=== PATIENT | male | born 1975 | race Caucasian/White ===

== ENCOUNTER 2017-02-20 21:04 | Emergency (ER) | payer OTHER ==
[~2017-02-20] VITALS: Ht 177.8 cm; Wt 99.8 kg
[~2017-02-20 21:04] MED LIST: AMOXICILLIN,AM875 MG PO; AMOXICILLIN500 MG PO; ANAPROX DS550 MG PO; ANTIVERT/2525 MG PO; ASPIRIN81 M1 PO; BACTRIM DS 8001 TA1 PO; CLARITIN-D 10 M1 T21 PO; CYCLOBENZAPRINE10 MG PO; FLONASE ALLERG9.9 ML NAS; HYDROCODONE BIT1 T11 PO; MOTRIN800 MG PO; Motrin,Rufen800 MG PO; NAPROSYN500 MG PO; NKHM; NKHM PO; OMEPRAZOLE40 MG PO; PHENERGAN25 M1 PO; PREDNISONE10 MG PO; ROBITUSSIN AC 110 ML PO; SIMVASTATIN20 MG PO; SKELAXIN800 M1 PO; VICO10300 PO; VICODIN ES 7501 TAB PO; WELLBUTRIN SR150 MG PO; ZANTAC 150150 MG PO; ZANTAC150 MG PO; ZITHROMAX Z PA250 MG PO; ZITHROMAX250 MG PO; ZOFRAN 4 MG ED2 TAB PO; ZOFRAN ODT4 MG SL
[2017-02-20] MEDS ORDERED: PREDNISONE50 MG PO (22:27)
== END 2017-02-20 22:32 | disposition home or self-care (01) ==
LOC: ED 21:04
DX: J40 Bronchitis, not specified as acute or chronic (principal); F17.200 Nicotine dependence, unspecified, uncomplicated

== ENCOUNTER 2017-03-16 13:03 | Emergency (ER) | payer OTHER ==
[~2017-03-16 13:03] MED LIST changes: +PREDNISONE50 MG PO
[2017-03-16] MEDS ORDERED: PREDNISONE10 MG PO (13:21)
[2017-03-16] MEDS ORDERED: ROBITUSSIN DM 105 ML PO (13:21)
[2017-03-16] MEDS ORDERED: CLARITIN10 MG PO (13:21)
[2017-03-16] MEDS ORDERED: FLONASE ALLERG9.9 ML NAS (13:21)
== END 2017-03-16 14:32 | disposition home or self-care (01) ==
LOC: ED 13:03
DX: B34.9 Viral infection, unspecified (principal); R03.0 Elevated blood-pressure reading, without diagnosis of hypertension; F17.200 Nicotine dependence, unspecified, uncomplicated; Z79.899 Other long term (current) drug therapy; Z79.82 Long term (current) use of aspirin

== ENCOUNTER → 2017-09-03 | Outpatient (CLI) | payer OTHER ==
[~2017-09-03] MED LIST changes: +CLARITIN10 MG PO; +ROBITUSSIN DM 105 ML PO
== END | disposition home or self-care (01) ==
LOC: CARD 09:46
DX: I10 Essential (primary) hypertension (principal); R94.31 Abnormal electrocardiogram [ECG] [EKG]

== ENCOUNTER → 2017-11-27 | Outpatient (CLI) | payer OTHER | END | disposition home or self-care (01) | LOC: CARD 08:24 | DX: R06.02 Shortness of breath (principal); I10 Essential (primary) hypertension; K21.9 Gastro-esophageal reflux disease without esophagitis; R94.31 Abnormal electrocardiogram [ECG] [EKG] ==

== ENCOUNTER 2018-09-10 11:10 | Emergency (ER) | payer OTHER ==
[~2018-09-10] VITALS: Ht 177.8 cm; Wt 124.7 kg
[~2018-09-10 11:10] MED LIST changes: +ALLERGY RELIEF10 M2 PO; +ASPIRIN ADULT L81 M2 PO; +DELTASONE20 M1 PO; +LISINOPRIL20 MG PO; +ZYRTEC10 MG PO
[2018-09-10] MEDS ORDERED: SEPTDS PO (12:57)
[2018-09-10] MEDS ORDERED: FLONASE ALLERG9.9 ML NAS (12:57)
[2018-09-10] MEDS ORDERED: TESSALON PERLE100 M1 PO (12:57)
== END 2018-09-10 13:20 | disposition home or self-care (01) ==
LOC: ED 11:10
DX: J32.9 Chronic sinusitis, unspecified (principal); F17.200 Nicotine dependence, unspecified, uncomplicated; Z79.899 Other long term (current) drug therapy; Z79.82 Long term (current) use of aspirin

== ENCOUNTER → 2022-07-17 | Outpatient (CLI) | payer OTHER ==
[~2022-07-17] MED LIST changes: +SEPTDS PO; +TESSALON PERLE100 M1 PO
[2022-07-17 10:27] LABS: ALKALINE PHOSPHATASE 84 U/L (46-116); BUN 10 mg/dl (9-23); CHLORIDE 107 mmol/L (98-107); CHOLESTEROL 161 mg/dL (<200); LDL CHOLESTEROL 79 mg/dL (9-159); SGPT/ALT 28 U/L (10-49); TOTAL PROTEIN 7.3 gm/dL (6.0-8.0); TRIGLYCERIDES 264 mg/dl (<150)
== END | disposition home or self-care (01) ==
LOC: LAB 09:57
PROVIDERS: ATTEND Nurse Practitioner Family
DX: I10 Essential (primary) hypertension (principal); E78.2 Mixed hyperlipidemia

== ENCOUNTER 2024-03-17 16:29 | Emergency (ER) | payer OTHER ==
[~2024-03-17] VITALS: Ht 172.7 cm; Wt 81.6 kg
[2024-03-17] MEDS ORDERED: Amoxicillin/Clavulanate Pota 875 MG TAB PO ONE (16:50)
[2024-03-17] MEDS ORDERED: AMOX-CLAV 875-1 EACH PO (17:50)
== END 2024-03-17 17:32 | disposition home or self-care (01) ==
LOC: ED 16:29
DX: H66.91 Otitis media, unspecified, right ear (principal); R00.0 Tachycardia, unspecified; K21.9 Gastro-esophageal reflux disease without esophagitis; Z98.890 Other specified postprocedural states

== ENCOUNTER 2024-12-11 16:19 | Inpatient (IN) | payer OTHER ==
[~2024-12-11] VITALS: Ht 177.8 cm; Wt 132.2 kg
[~2024-12-11 16:19] MED LIST changes: +AMOX-CLAV 875-1 EACH PO
[2024-12-11 16:27] VITALS: BP 143/86
[2024-12-11 17:19] LABS: BASO # 0.0 10*3/uL (0.0-0.1); BASO % 0.4 % (0.0-1.0); EOS # 0.1 10*3/uL (0.0-0.4); EOS % 1.5 % (1.0-4.0); MEAN CELL VOLUME 82.5 fl (80.0-94.0); MEAN CORPUSCULAR HGB 29.4 pg (27.0-31.0); MEAN PLATELET VOLUME 9.5 fl (9.6-12.3); MONO # 0.7 10*3/uL (0.1-1.0); MONO % 10.3 % (3.0-9.0); NEUT # 5.5 10*3/uL (2.3-7.9); NEUT % 75.6 % (47.0-73.0); NUCLEATED RED BLOOD CELL 0.0 % (0.0-0.0); NUCLEATED RED BLOOD CELL 0.0 10*3/uL (0.0-0.0); PLATELET COUNT AUTOMATED 369 10*3/uL (130-400); RED CELL DISTRI WIDTH 14.3 % (0-14.5)
[2024-12-11 17:36] LABS: BUN 13 mg/dl (9-23)
[2024-12-11] MEDS ORDERED: SODIUM CHLORIDE 0.9% 1,000 ML IV ONE (18:05)
[2024-12-11] MEDS ORDERED: ACETAMINOPHEN 650 MG SUPP R PRN (18:15)
[2024-12-11] MEDS ORDERED: BISACODYL 5 MG TAB PO PRN (18:15)
[2024-12-11] MEDS ORDERED: Acetaminophen/Hydrocodone 5 MG/325 MG TABLET PO PRN (18:15)
[2024-12-11] MEDS ORDERED: BISACODYL 10 MG SUPP R PRN (18:15)
[2024-12-11] MEDS ORDERED: ACETAMINOPHEN 325 MG TAB PO PRN (18:15)
[2024-12-11] MEDS ORDERED: Ondansetron Hydrochloride 4 MG/2 ML VIAL IV PRN (18:15)
[2024-12-11] MEDS ORDERED: METFORMIN HYDR500 MG PO (18:34)
[2024-12-11] MEDS ORDERED: HYDROCHLOROTHIA25 M1 PO (18:35)
[2024-12-11] MEDS ORDERED: LISINOPRIL40 MG PO (18:36)
[2024-12-11] MEDS ORDERED: SIMVASTATIN40 MG PO (18:36)
[2024-12-11] MEDS ORDERED: Albuterol 108mcg/A (18:38)
[2024-12-11 20:47] VITALS: BP 103/63
[2024-12-11 21:45] VITALS: BP 133/82
[2024-12-11 23:09] LABS: BUN 12 mg/dl (9-23)
[2024-12-11] MEDS ORDERED: Albuterol Sulf/Ipratropium 3 ML VIAL NEB PRN (23:25)
[2024-12-11] MEDS ORDERED: DEXTROSE 10 % IN WATER 250 ML IV PRN (23:25)
[2024-12-12] VITALS: BP 133/82
[2024-12-12] MEDS ORDERED: SODIUM CHLORIDE 0.9% 1,000 ML IV SCH (02:00)
[2024-12-12] MEDS ORDERED: OMEPRAZOLE 20 MG CAP PO SCH (06:00)
[2024-12-12 06:06] LABS: BASO # 0.0 10*3/uL (0.0-0.1); BASO % 0.4 % (0.0-1.0); EOS # 0.1 10*3/uL (0.0-0.4); EOS % 1.2 % (1.0-4.0); MEAN CELL VOLUME 84.4 fl (80.0-94.0); MEAN CORPUSCULAR HGB 28.8 pg (27.0-31.0); MEAN PLATELET VOLUME 9.9 fl (9.6-12.3); MONO # 0.8 10*3/uL (0.1-1.0); MONO % 10.0 % (3.0-9.0); NEUT # 5.6 10*3/uL (2.3-7.9); NEUT % 74.9 % (47.0-73.0); NUCLEATED RED BLOOD CELL 0.0 % (0.0-0.0); NUCLEATED RED BLOOD CELL 0.0 10*3/uL (0.0-0.0); PLATELET COUNT AUTOMATED 357 10*3/uL (130-400); RED CELL DISTRI WIDTH 14.2 % (0-14.5)
[2024-12-12 06:07] LABS: BUN 10 mg/dl (9-23)
[2024-12-12] MEDS ORDERED: INSULIN LISPRO 1 UNIT/0.01 ML SQ SCH ×2 (07:30→11:30)
[2024-12-12 08:00] VITALS: BP 126/83
[2024-12-12] MEDS ORDERED: DEXTROSE 50% 25 GM/50 ML VIAL IV PRN (09:20)
[2024-12-12] MEDS ORDERED: FLUTICASONE PROPIONATE Nasal 16 Gm spray NAS SCH (10:00)
[2024-12-12] MEDS ORDERED: ASPIRIN ENTERIC COATED 81 MG TAB PO SCH (10:00)
[2024-12-12] MEDS ORDERED: LISINOPRIL 40 MG TAB PO SCH (10:00)
[2024-12-12 11:58] VITALS: BP 132/86
[2024-12-12 16:00] VITALS: BP 111/66
[2024-12-12 20:00] VITALS: BP 135/79
[2024-12-12] MEDS ORDERED: SIMVASTATIN 20 MG TAB PO SCH (22:00)
[2024-12-12 23:54] VITALS: BP 122/81
[2024-12-13 05:54] LABS: BUN 10 mg/dl (9-23)
[2024-12-13 08:00] VITALS: BP 122/67
[2024-12-13 11:51] VITALS: BP 137/62
== END 2024-12-13 17:04 | disposition home or self-care (01) | DRG 426 ==
LOC: ED 16:19 → EDHOLD 18:08 → 5E 21:03
PROVIDERS: Emergency Medicine; Student in an Organized Health Care Education/Training Program; ADMIT Family Medicine; ATTEND Family Medicine
DX: E87.1 Hypo-osmolality and hyponatremia (principal); F54 Psychological and behavioral factors associated with disorders or diseases classified elsewhere; E11.65 Type 2 diabetes mellitus with hyperglycemia; E66.01 Morbid (severe) obesity due to excess calories; J45.909 Unspecified asthma, uncomplicated; K21.9 Gastro-esophageal reflux disease without esophagitis; E78.5 Hyperlipidemia, unspecified; R22.1 Localized swelling, mass and lump, neck; Z82.49 Family history of ischemic heart disease and other diseases of the circulatory system; Z83.3 Family history of diabetes mellitus; Z82.5 Family history of asthma and other chronic lower respiratory diseases; Z79.82 Long term (current) use of aspirin; Z79.899 Other long term (current) drug therapy; Z68.41 Body mass index [BMI] 40.0-44.9, adult

== ENCOUNTER 2024-12-26 18:46 | Emergency (ER) | payer OTHER ==
[~2024-12-26] VITALS: Ht 177.8 cm; Wt 123.4 kg
[~2024-12-26 18:46] MED LIST changes: +AIRSUPRA 90-810.7 GM INH; +Albuterol 108mcg/A; +HYDROCHLOROTHIA25 M1 PO; +LISINOPRIL40 MG PO; +METFORMIN HYDR500 MG PO; +SIMVASTATIN40 MG PO
[2024-12-26 19:12] LABS: BASO # 0.1 10*3/uL (0.0-0.1); BASO % 0.7 % (0.0-1.0); EOS # 0.1 10*3/uL (0.0-0.4); EOS % 1.5 % (1.0-4.0); MEAN CELL VOLUME 83.5 fl (80.0-94.0); MEAN CORPUSCULAR HGB 29.6 pg (27.0-31.0); MEAN PLATELET VOLUME 8.7 fl (9.6-12.3); MONO # 1.0 10*3/uL (0.1-1.0); MONO % 13.8 % (3.0-9.0); NEUT # 5.1 10*3/uL (2.3-7.9); NEUT % 72.2 % (47.0-73.0); NUCLEATED RED BLOOD CELL 0.0 % (0.0-0.0); NUCLEATED RED BLOOD CELL 0.0 10*3/uL (0.0-0.0); PLATELET COUNT AUTOMATED 398 10*3/uL (130-400); RED CELL DISTRI WIDTH 14.1 % (0-14.5)
[2024-12-26 19:44] LABS: BUN 12 mg/dl (9-23)
[2024-12-26] MEDS ORDERED: SODIUM CHLORIDE 0.9% 1,000 ML IV ONE (20:00)
[2024-12-26] MEDS ORDERED: Dexamethasone Sodium Phospha 10 MG/1 ML VIAL IV ONE (20:35)
== END 2024-12-26 22:10 | disposition short-term general hospital (02) ==
LOC: ED 18:46
PROVIDERS: Nurse Practitioner Family
DX: R90.0 Intracranial space-occupying lesion found on diagnostic imaging of central nervous system (principal); E87.1 Hypo-osmolality and hyponatremia; C71.9 Malignant neoplasm of brain, unspecified; R53.1 Weakness; F17.200 Nicotine dependence, unspecified, uncomplicated; Z79.84 Long term (current) use of oral hypoglycemic drugs; Z79.899 Other long term (current) drug therapy; Z79.82 Long term (current) use of aspirin

== ENCOUNTER 2025-04-15 14:30 | Emergency (ER) | payer OTHER ==
[~2025-04-15] VITALS: Ht 177.8 cm; Wt 117.9 kg
[2025-04-15] MEDS ORDERED: Ondansetron Hydrochloride 4 MG/2 ML VIAL IV ONE (14:55)
[2025-04-15 15:52] LABS: BASO # 0.1 10*3/uL (0.0-0.1); BASO % 0.5 % (0.0-1.0); EOS # 0.0 10*3/uL (0.0-0.4); EOS % 0.1 % (1.0-4.0); MEAN CELL VOLUME 98.0 fl (80.0-94.0); MEAN CORPUSCULAR HGB 31.6 pg (27.0-31.0); MEAN PLATELET VOLUME 8.4 fl (9.6-12.3); MONO # 1.1 10*3/uL (0.1-1.0); MONO % 7.1 % (3.0-9.0); NEUT # 13.2 10*3/uL (2.3-7.9); NEUT % 87.7 % (47.0-73.0); NUCLEATED RED BLOOD CELL 0.0 % (0.0-0.0); NUCLEATED RED BLOOD CELL 0.0 10*3/uL (0.0-0.0); PLATELET COUNT AUTOMATED 581 10*3/uL (130-400); RED CELL DISTRI WIDTH 18.2 % (0-14.5)
[2025-04-15 16:15] LABS: BUN 8 mg/dl (9-23)
[2025-04-15] MEDS ORDERED: SODIUM CHLORIDE 0.9% 1,000 ML IV ONE (16:15)
[2025-04-15] MEDS ORDERED: SODIUM CHLORIDE 0.9% 100 ML BAG IV ONE (17:10)
[2025-04-15] MEDS ORDERED: IOHEXOL 350 MG/ML 100 ML VIAL IV ONE ×2 (17:10→17:39)
[2025-04-15] MEDS ORDERED: SODIUM CHLORIDE 0.9% 100 ML IV ONE (17:38)
== END 2025-04-15 20:02 | disposition short-term general hospital (02) ==
LOC: ED 14:30
PROVIDERS: Nurse Practitioner Family
DX: S72.92XA Unspecified fracture of left femur, initial encounter for closed fracture (principal); R00.0 Tachycardia, unspecified; C79.9 Secondary malignant neoplasm of unspecified site; W19.XXXA Unspecified fall, initial encounter; Y93.01 Activity, walking, marching and hiking; Y92.002 Bathroom of unspecified non-institutional (private) residence as the place of occurrence of the external cause; Y99.8 Other external cause status